=== PATIENT | male | born 1975 | race Caucasian/White ===

== ENCOUNTER 2020-06-01 14:11 | Emergency (ER) | payer MEDICAID ==
[~2020-06-01] VITALS: Ht 172.7 cm; Wt 68.0 kg
[2020-06-01 14:19] VITALS: BP_SYST 152
[2020-06-01 15:16] LABS: BASOPHILS # (AUTO) 0.1 K/uL (0.0-0.2); EOSINOPHILS # (AUTO) 0.1 K/uL (0.0-0.4); EOSINOPHILS % (AUTO) 0.9 % (0.0-4.0); HEMATOCRIT 27.9 % (36-54); HEMOGLOBIN 9.4 g/dL (14.0-18.0); LYMPHOCYTES # (AUTO) 0.9 K/uL (1.0-5.5); LYMPHOCYTES % (AUTO) 11.2 % (20.5-51.5); MEAN CORPUSCULAR HEMOGLOBIN 28 pg (27-31); MEAN CORPUSCULAR HGB CONC 34 % (32-36); MEAN CORPUSCULAR VOLUME 82 fL (79.0-98.0); MONOCYTES # (AUTO) 0.5 K/uL (0.0-1.0); MONOCYTES % (AUTO) 5.6 % (1.7-9.3); NEUTROPHILS # (AUTO) 6.7 K/uL (1.8-7.7); NEUTROPHILS % (AUTO) 81.3 % (40.0-70.0); PLATELET COUNT (AUTO) 334 K/uL (130-430); RED BLOOD CELL COUNT(AUTO) 3.38 MIL/uL (4.2-6.2); WHITE BLOOD COUNT (AUTO) 8.2 K/uL (4.8-10.8)
[2020-06-01 15:49] LABS: ANION GAP 7 (5-15); CHLORIDE 102 mmol/L (98-107); CREATININE 0.91 mg/dL (0.55-1.30); GFR AFRICAN AMERICAN 115 mL/min (>90); GLUCOSE 100 mg/dL (70-99); POTASSIUM 3.2 mmol/L (3.5-5.1); SODIUM SERUM 138 mmol/L (136-145); UREA NITROGEN, BLOOD 25 mg/dL (8-21)
[2020-06-01 16:51] VITALS: BP_SYST 137
[2020-06-01 16:57] LABS: BILIRUBIN,URINE NEGATIVE (NEGATIVE); BLOOD, URINE 2+ (NEGATIVE); COLOR,URINE YELLOW (YELLOW); GLUCOSE,URINE NEGATIVE (NEGATIVE); KETONES,URINE NEGATIVE (NEGATIVE); LEUKOCYTE ESTERASE ,URINE 1+ (NEGATIVE); NITRITE, URINE NEGATIVE (NEGATIVE); PH,URINE 5.5 (5.0-8.0); PROTEIN URINE 1+ (NEGATIVE); UROBILINOGEN,URINE 0.2 (0.2-1.0)
[2020-06-01 17:08] LABS: CLARITY/URINE HAZY (CLEAR)
[2020-06-01 17:24] LABS: BACTERIA,URINE MANY /HPF (None Seen); MUCUS,URINE None Seen /LPF (None Seen); WBC,URINE 80-100 /HPF (0-3)
== END 2020-06-01 16:52 | disposition home or self-care (01) ==
LOC: SED 14:11
DX: R53.1 Weakness (principal); E11.9 Type 2 diabetes mellitus without complications
CPT/HCPCS: 36415; 80048; 81000-TC; 84484; 85025; 87086; 93005; 99284